=== PATIENT | female | born 2000 | race African-American/Black ===

== ENCOUNTER 2025-04-07 09:16 | Outpatient (CLI) | payer OTHER, SELFPAY ==
--- NOTE | ~2025-04-07 | MMUS_ITS ---
Examination: MM diagnostic TABITHA BI W adam and US breast BI completed INDICATION: 24-year old female; follow-up bilateral breast lumps. Prior history of benign right breas t biopsy. COMPARISON: None available TECHNIQUE: Digital breast tomosynthesis MLO and CC BILATERAL breast and magnification views in MLO an d cc views of the left breast were obtained with computer-aided detection to assist in interpretation of the study. FINDINGS: The breasts are extremely dense, which lowers the sensitivity of mammography. A group of amorphous calcifications in the left breast that spans 1.6 cm in the superior central 12:0 0 location at anterior depth. No other focal dominant mass, architectural distortion, or suspicious microcalcifications identified. Biopsy clip in the right breast. BILATERAL BREAST ULTRASOUND FINDINGS: Right breast: There are multiple circumscribed hypoechoic masses scattered within the breast that inc ludes at 2:00, 3 cm from the nipple, measure 0.7 x 0.4 x 0.8 cm. At 3:00, 4 cm from the nipple which measure 2.5 x 0.8 x 2.5 cm. At 3:00, 2 cm from the nipple there are 2 masses that measure 1.3 x 0.6 x 1.6 cm and 1.2 x 0.5 x 1.4 cm respectively. At 6:00, subareolar, a mass measure 0.8 x 0.4 x 0.8 cm. Left breast: Multiple circumscribed hypoechoic masses seen including the following: At 12:00, 5 cm from the nipple 0.7 x 0.3 x 0.7 cm At 4:00, 3 cm from the nipple 0.9 x 0.4 x 0.8 cm At 8:00, 5 cm from the nipple 0.6 x 0.4 x 0.9 cm At 9:00, 3 cm from the nipple 1.0 x 0.3 x 1.3 cm At 10:00, 2 cm from the nipple there is an irregular shaped hypoechoic mass containing several echoge isela foci that represent calcifications, measures 1.7 x 0.9 x 2.1 cm. This lesion is considered indete rminate. IMPRESSION: 1. Suspicious left breast grouped amorphous calcifications at 12:00 anterior depth. Biopsy is recomme nded. 2. Indeterminate irregular shaped left breast hypoechoic mass at 10:00, 2 cm from the nipple. Biopsy is recommended. 3. Probably benign multiple hypoechoic masses bilaterally seen only on ultrasound examination. Short- term 12 months follow-up bilateral breast ultrasound is recommended. Recommendation: 1. Stereotactic core needle biopsy left breast calcifications. 2. Ultrasound-guided core needle biopsy left breast mass at 10:00. BI-RADS 4, SUSPICIOUS Reviewed, dictated and finalized at location B. IMPRESSION: 1. Suspicious left breast grouped amorphous calcifications at 12:00 anterior de pth. Biopsy is recommended. 2. Indeterminate irregular shaped left breast hypoechoic mass at 10:00, 2 cm fr om the nipple. Biopsy is recommended. 3. Probably benign multiple hypoechoic masses bilaterally seen only on ultrasou nd examination. Short-term 12 months follow-up bilateral breast ultrasound is r ecommended. Recommendation: 1. Stereotactic core needle biopsy left breast calcifications. 2. Ultrasound-guided core needle biopsy left breast mass at 10:00. BI-RADS 4, SUSPICIOUS
== END 2025-04-07 09:17 | disposition home or self-care (01) ==
PROVIDERS: PCP Nurse Practitioner; Visit Provider Nurse Practitioner
DX: N63.0 Unspecified lump in unspecified breast (principal); R92.8 Other abnormal and inconclusive findings on diagnostic imaging of breast
CPT/HCPCS: 76641; 77062; 77066; G0279